=== PATIENT | male | born 1960 | race Caucasian/White ===

== ENCOUNTER 2024-11-30 19:04 | Inpatient (IN) | payer OTHER ==
[~2024-11-30] VITALS: Ht 170.2 cm; Wt 113.4 kg
[2024-11-30] MEDS ORDERED: ONDANSETRON HCL/PF 4 MG/2 ML VIAL ONE (19:22)
[2024-11-30] MEDS ORDERED: FAMOTIDINE/PF INJ 20 MG/2 ML VIAL IV ONE (19:23)
[2024-11-30] MEDS ORDERED: LIDOCAINE VISCOUS 2% UD 15 ML UDC ONE (19:23)
[2024-11-30] MEDS ORDERED: MAG HYDROX/AL HYDROX/SIMETH 30 ML UDC ONE (19:23)
[2024-11-30 19:27] LABS: BASOPHILS # (AUTO) 0.1 K/uL (0.0-0.2); EOSINOPHILS # (AUTO) 0.1 K/uL (0.0-0.7); EOSINOPHILS % (AUTO) 1.2 % (0.0-6.0); HEMATOCRIT 43 % (39-51); HEMOGLOBIN 14.3 g/dL (13.5-17.5); LYMPHOCYTES % (AUTO) 23.6 % (20.0-44.0); MEAN CORPUSCULAR HEMOGLOBIN 29 PG (26.0-33.0); MEAN CORPUSCULAR HGB CONC 34 g/dl (31.0-36.0); MEAN CORPUSCULAR VOLUME 87 fL (80-96); MONOCYTES # (AUTO) 0.8 K/uL (0.1-1.30); MONOCYTES % (AUTO) 9.3 % (2.0-12.0); NEUTROPHILS # (AUTO) 5.6 K/uL (1.8-8.9); NEUTROPHILS % (AUTO) 64.9 % (43.0-81.0); PLATELET COUNT (AUTO) 312 K/uL (150-450); RED CELL DISTRIBUTION WIDTH 13.8 % (11.5-15.0); WHITE BLOOD COUNT (AUTO) 8.7 K/uL (4.3-11.0)
[2024-11-30] MEDS: LIDOCAINE VISCOUS 2% UD 15 ML UDC MM ONE (19:32)
[2024-11-30] MEDS: IV NS 0.9% 1,000 ML BAG IV ONE (19:32)
[2024-11-30] MEDS: FAMOTIDINE/PF INJ 20 MG/2 ML VIAL IV ONE (19:32)
[2024-11-30] MEDS: ONDANSETRON HCL/PF 4 MG/2 ML VIAL IV ONE (19:32)
[2024-11-30] MEDS: MAG HYDROX/AL HYDROX/SIMETH 30 ML UDC PO ONE (19:32)
[2024-11-30 19:36] LABS: CALCIUM, SERUM 9.1 mg/dL (8.5-10.1)
[2024-11-30 19:55] LABS: ALBUMIN 3.7 g/dL (3.4-5.0); BILIRUBIN,DIRECT 0.2 mg/dL (0.0-0.2); TOTAL PROTEIN, SERUM 8.1 g/dL (6.4-8.2)
[2024-11-30] MEDS ORDERED: MORPHINE SULFATE INJ 2 MG/ML DISP.SYRIN IV PRN (22:00)
[2024-11-30] MEDS ORDERED: ONDANSETRON HCL/PF 4 MG/2 ML VIAL IVP PRN (22:00)
[2024-11-30] MEDS ORDERED: IV NS 0.9% 1,000 ML IV PRN (22:00)
[2024-11-30] MEDS ORDERED: MAGNESIUM HYDROXIDE 30 ML UDC PO PRN (22:00)
[2024-11-30] MEDS ORDERED: MAG HYDROX/AL HYDROX/SIMETH 30 ML UDC PO PRN (22:00)
[2024-11-30 22:06] LABS: APPEARANCE,URINE CLEAR (CLEAR); BILIRUBIN,URINE NEGATIVE (NEGATIVE); BLOOD, URINE NEGATIVE Ery/uL (NEGATIVE); COLOR,URINE YELLOW (YELLOW); KETONES,URINE NEGATIVE (NEGATIVE); LEUKOCYTE ESTERASE ,URINE NEGATIVE (NEGATIVE); NITRITE, URINE NEGATIVE (NEGATIVE); PROTEIN,URINE NEGATIVE (NEGATIVE); UGLUCOSE NEGATIVE (NEGATIVE); UROBILINOGEN,URINE 0.2 EU/dL (0.2)
[2024-11-30 22:23] LABS: APPEARANCE,URINE CLEAR (CLEAR); BLOOD, URINE NEGATIVE Ery/uL (NEGATIVE); COLOR,URINE YELLOW (YELLOW); PROTEIN,URINE NEGATIVE (NEGATIVE); UGLUCOSE NEGATIVE (NEGATIVE)
[2024-11-30 22:30] VITALS: BP 124/85; TEMP 99.1; O2SAT 95
[2024-11-30 22:30] LABS: BILIRUBIN,URINE NEGATIVE (NEGATIVE); KETONES,URINE NEGATIVE (NEGATIVE); LEUKOCYTE ESTERASE ,URINE NEGATIVE (NEGATIVE); NITRITE, URINE NEGATIVE (NEGATIVE); UROBILINOGEN,URINE 0.2 EU/dL (0.2)
[2024-11-30] MEDS: TRAZODONE 50 MG TABLET PO PRN (22:44)
[2024-11-30] MEDS: ENOXAPARIN SODIUM 40 MG/0.4 ML DISP.SYRIN SQ SCH (22:45)
[2024-11-30] MEDS: ACETAMINOPHEN 325 MG TABLET PO PRN (22:53)
[2024-12-01 04:00] VITALS: BP 103/72; TEMP 98.2; O2SAT 97
[2024-12-01 06:35] LABS: BASOPHILS # (AUTO) 0.1 K/uL (0.0-0.2); BASOPHILS % (AUTO) 0.9 % (0.0-2.0); EOSINOPHILS # (AUTO) 0.1 K/uL (0.0-0.7); EOSINOPHILS % (AUTO) 2.2 % (0.0-6.0); HEMATOCRIT 42 % (39-51); HEMOGLOBIN 14.1 g/dL (13.5-17.5); LYMPHOCYTES # (AUTO) 2.2 K/uL (0.8-4.8); LYMPHOCYTES % (AUTO) 32.6 % (20.0-44.0); MEAN CORPUSCULAR HEMOGLOBIN 30 PG (26.0-33.0); MEAN CORPUSCULAR HGB CONC 34 g/dl (31.0-36.0); MEAN CORPUSCULAR VOLUME 88 fL (80-96); MONOCYTES # (AUTO) 0.9 K/uL (0.1-1.30); MONOCYTES % (AUTO) 12.8 % (2.0-12.0); NEUTROPHILS # (AUTO) 3.5 K/uL (1.8-8.9); NEUTROPHILS % (AUTO) 51.5 % (43.0-81.0); PLATELET COUNT (AUTO) 260 K/uL (150-450); RED BLOOD CELL COUNT(AUTO) 4.74 MIL/uL (4.5-6.0); RED CELL DISTRIBUTION WIDTH 13.7 % (11.5-15.0); WHITE BLOOD COUNT (AUTO) 6.8 K/uL (4.3-11.0)
[2024-12-01 06:53] LABS: ALBUMIN 3.4 g/dL (3.4-5.0); BILIRUBIN,DIRECT 0.2 mg/dL (0.0-0.2); BILIRUBIN,TOTAL 1.2 mg/dL (0.2-1.0); CREATININE 0.9 mg/dL (0.6-1.3); PHOSPHORUS 4.1 mg/dL (2.5-4.9); TOTAL PROTEIN, SERUM 7.6 g/dL (6.4-8.2)
[2024-12-01 06:59] LABS: CALCIUM, SERUM 8.8 mg/dL (8.5-10.1)
[2024-12-01 08:00] VITALS: BP 111/68; TEMP 98.3; O2SAT 97
[2024-12-01] MEDS ORDERED: ASPI-1169 PO (08:31)
[2024-12-01] MEDS ORDERED: ROSU40TA PO (08:31)
[2024-12-01] MEDS ORDERED: METO25TA4 PO (08:31)
[2024-12-01] MEDS ORDERED: CHOL400T28 PO (08:31)
[2024-12-01] MEDS ORDERED: LISI-768 PO (08:31)
[2024-12-01] MEDS: FAMOTIDINE/PF INJ 20 MG/2 ML VIAL IV SCH (08:41)
[2024-12-01 12:00] VITALS: BP 109/74; TEMP 98; O2SAT 97
[2024-12-01 13:21] LABS: FREE PSA 0.37 ng/mL (0.00-45); PROSTATE SPECIFIC ANTIGEN SCR 1.59 ng/mL (0.00-4.00)
[2024-12-01] MEDS ORDERED: IOHEXOL-350 100 ML VIAL IV ONE (16:28)
[2024-12-01] MEDS ORDERED: IV NS 0.9% 500 ML IV ONE (16:29)
[2024-12-01] MEDS: SUCRALFATE 1 G/10 ML UDC PO SCH (16:59)
[2024-12-01 20:00] VITALS: BP 101/64; TEMP 99.3; O2SAT 95
[2024-12-02 04:00] VITALS: BP 96/67; TEMP 99; O2SAT 98
[2024-12-02 06:22] LABS: BASOPHILS # (AUTO) 0.1 K/uL (0.0-0.2); BASOPHILS % (AUTO) 0.8 % (0.0-2.0); EOSINOPHILS # (AUTO) 0.4 K/uL (0.0-0.7); EOSINOPHILS % (AUTO) 5.1 % (0.0-6.0); HEMATOCRIT 40 % (39-51); HEMOGLOBIN 13.7 g/dL (13.5-17.5); LYMPHOCYTES # (AUTO) 2.1 K/uL (0.8-4.8); LYMPHOCYTES % (AUTO) 30.5 % (20.0-44.0); MEAN CORPUSCULAR HEMOGLOBIN 30 PG (26.0-33.0); MEAN CORPUSCULAR HGB CONC 34 g/dl (31.0-36.0); MEAN CORPUSCULAR VOLUME 87 fL (80-96); MONOCYTES # (AUTO) 0.9 K/uL (0.1-1.30); MONOCYTES % (AUTO) 13.1 % (2.0-12.0); NEUTROPHILS # (AUTO) 3.5 K/uL (1.8-8.9); NEUTROPHILS % (AUTO) 50.5 % (43.0-81.0); PLATELET COUNT (AUTO) 281 K/uL (150-450); RED BLOOD CELL COUNT(AUTO) 4.63 MIL/uL (4.5-6.0); WHITE BLOOD COUNT (AUTO) 6.9 K/uL (4.3-11.0)
[2024-12-02 06:34] LABS: CREATININE 1.1 mg/dL (0.6-1.3); MAGNESIUM 2.3 mg/dL (1.8-2.4); POTASSIUM 3.5 mmol/L (3.5-5.1)
[2024-12-02 08:00] VITALS: BP 102/69; TEMP 97.3; O2SAT 97
[2024-12-02] MEDS: FAMOTIDINE (20 MG) 20 MG TABLET PO SCH (08:14)
[2024-12-02 16:00] VITALS: BP 96/78; TEMP 97.5; O2SAT 97
[2024-12-02 16:39] VITALS: BP 96/78; TEMP 97.5; O2SAT 97
[2024-12-02 20:00] VITALS: BP 106/74; TEMP 97.3; O2SAT 95
[2024-12-03 04:00] VITALS: BP 104/78; TEMP 97.6; O2SAT 96
[2024-12-03 06:45] LABS: INR 1.03 (0.91-1.10); PARTIAL THROMBOPLASTIN TIME 30.4 SEC (24.3-34.3); PROTHROMBIN TIME 10.9 SECS (9.2-11.1)
[2024-12-03 06:47] LABS: BASOPHILS # (AUTO) 0.1 K/uL (0.0-0.2); BASOPHILS % (AUTO) 0.8 % (0.0-2.0); EOSINOPHILS # (AUTO) 0.4 K/uL (0.0-0.7); EOSINOPHILS % (AUTO) 6.7 % (0.0-6.0); HEMATOCRIT 42 % (39-51); HEMOGLOBIN 14.1 g/dL (13.5-17.5); MEAN CORPUSCULAR HEMOGLOBIN 29 PG (26.0-33.0); MEAN CORPUSCULAR HGB CONC 33 g/dl (31.0-36.0); MEAN CORPUSCULAR VOLUME 87 fL (80-96); MONOCYTES # (AUTO) 0.8 K/uL (0.1-1.30); MONOCYTES % (AUTO) 11.9 % (2.0-12.0); NEUTROPHILS # (AUTO) 3.2 K/uL (1.8-8.9); NEUTROPHILS % (AUTO) 49.6 % (43.0-81.0); PLATELET COUNT (AUTO) 274 K/uL (150-450); RED BLOOD CELL COUNT(AUTO) 4.87 MIL/uL (4.5-6.0); RED CELL DISTRIBUTION WIDTH 13.8 % (11.5-15.0); WHITE BLOOD COUNT (AUTO) 6.5 K/uL (4.3-11.0)
[2024-12-03 07:44] LABS: CALCIUM, SERUM 9.6 mg/dL (8.5-10.1); CREATININE 0.9 mg/dL (0.6-1.3); MAGNESIUM 2.3 mg/dL (1.8-2.4); POTASSIUM 4.2 mmol/L (3.5-5.1)
[2024-12-03 08:00] VITALS: BP 102/80; TEMP 97.7; O2SAT 95
[2024-12-03] MEDS ORDERED: BARIUM SULFATE 98% 135 ML SUSP.RECON PO ONE (13:53)
[2024-12-03] MEDS ORDERED: SIMETHICONE/SOD BICARB/CIT AC 1 EACH GRAN.EF.PK PO ONE (14:11)
[2024-12-03 16:00] VITALS: BP 105/73; TEMP 97.7; O2SAT 98
[2024-12-03 20:00] VITALS: BP 106/72; TEMP 97.7; O2SAT 96
[2024-12-04 04:00] VITALS: BP 96/78; TEMP 98.1; O2SAT 97
[2024-12-04 06:47] LABS: BASOPHILS # (AUTO) 0.1 K/uL (0.0-0.2); EOSINOPHILS # (AUTO) 0.4 K/uL (0.0-0.7); EOSINOPHILS % (AUTO) 6.2 % (0.0-6.0); HEMATOCRIT 41 % (39-51); HEMOGLOBIN 13.8 g/dL (13.5-17.5); LYMPHOCYTES # (AUTO) 1.7 K/uL (0.8-4.8); LYMPHOCYTES % (AUTO) 27.6 % (20.0-44.0); MEAN CORPUSCULAR HEMOGLOBIN 29 PG (26.0-33.0); MEAN CORPUSCULAR HGB CONC 34 g/dl (31.0-36.0); MEAN CORPUSCULAR VOLUME 87 fL (80-96); MONOCYTES # (AUTO) 0.6 K/uL (0.1-1.30); MONOCYTES % (AUTO) 9.9 % (2.0-12.0); NEUTROPHILS # (AUTO) 3.5 K/uL (1.8-8.9); NEUTROPHILS % (AUTO) 55.3 % (43.0-81.0); PLATELET COUNT (AUTO) 304 K/uL (150-450); RED BLOOD CELL COUNT(AUTO) 4.74 MIL/uL (4.5-6.0); RED CELL DISTRIBUTION WIDTH 13.6 % (11.5-15.0); WHITE BLOOD COUNT (AUTO) 6.3 K/uL (4.3-11.0)
[2024-12-04 07:52] LABS: CALCIUM, SERUM 8.9 mg/dL (8.5-10.1); CREATININE 0.8 mg/dL (0.6-1.3); MAGNESIUM 2.2 mg/dL (1.8-2.4); POTASSIUM 4.4 mmol/L (3.5-5.1)
[2024-12-04 08:00] VITALS: BP 96/75; TEMP 98; O2SAT 97
[2024-12-04 12:00] VITALS: BP 110/70; TEMP 98; O2SAT 97
[2024-12-04 17:12] VITALS: BP 104/65; TEMP 98; O2SAT 96
[2024-12-04 20:00] VITALS: BP 111/71; TEMP 97.7; O2SAT 96
[2024-12-05 04:00] VITALS: BP 97/75; TEMP 97.7; O2SAT 97
[2024-12-05 06:43] LABS: BASOPHILS # (AUTO) 0.1 K/uL (0.0-0.2); BASOPHILS % (AUTO) 0.9 % (0.0-2.0); EOSINOPHILS # (AUTO) 0.3 K/uL (0.0-0.7); EOSINOPHILS % (AUTO) 5.7 % (0.0-6.0); HEMATOCRIT 41 % (39-51); HEMOGLOBIN 13.7 g/dL (13.5-17.5); LYMPHOCYTES % (AUTO) 32.9 % (20.0-44.0); MEAN CORPUSCULAR HEMOGLOBIN 29 PG (26.0-33.0); MEAN CORPUSCULAR HGB CONC 33 g/dl (31.0-36.0); MEAN CORPUSCULAR VOLUME 87 fL (80-96); MONOCYTES # (AUTO) 0.7 K/uL (0.1-1.30); NEUTROPHILS % (AUTO) 49.5 % (43.0-81.0); PLATELET COUNT (AUTO) 291 K/uL (150-450); RED BLOOD CELL COUNT(AUTO) 4.74 MIL/uL (4.5-6.0); RED CELL DISTRIBUTION WIDTH 13.7 % (11.5-15.0); WHITE BLOOD COUNT (AUTO) 6.1 K/uL (4.3-11.0)
[2024-12-05 06:59] LABS: ALBUMIN 3.4 g/dL (3.4-5.0); BILIRUBIN,TOTAL 0.7 mg/dL (0.2-1.0); CREATININE 0.8 mg/dL (0.6-1.3); MAGNESIUM 2.1 mg/dL (1.8-2.4); POTASSIUM 4.1 mmol/L (3.5-5.1); TOTAL PROTEIN, SERUM 7.6 g/dL (6.4-8.2)
[2024-12-05 08:00] VITALS: BP 107/81; TEMP 98.8; O2SAT 97
[2024-12-05] MEDS ORDERED: DIATR MEGLU/DIATRIZOATE SODIUM 120 ML BOTTLE (GASTROGRAPHIN) ONE (11:23)
[2024-12-05 16:00] VITALS: BP_SYST 107; BP_SYST 119; BP_DIAS 81; TEMP 97; TEMP 98.8; O2SAT 97; O2SAT 98
[2024-12-05 20:00] VITALS: BP 124/74; TEMP 98.1; O2SAT 99
[2024-12-06 04:00] VITALS: BP 110/80; TEMP 97.3; O2SAT 98
[2024-12-06 07:26] LABS: BASOPHILS # (AUTO) 0.1 K/uL (0.0-0.2); BASOPHILS % (AUTO) 1.1 % (0.0-2.0); EOSINOPHILS # (AUTO) 0.4 K/uL (0.0-0.7); EOSINOPHILS % (AUTO) 6.2 % (0.0-6.0); HEMATOCRIT 42 % (39-51); HEMOGLOBIN 14.1 g/dL (13.5-17.5); LYMPHOCYTES # (AUTO) 1.9 K/uL (0.8-4.8); LYMPHOCYTES % (AUTO) 30.5 % (20.0-44.0); MEAN CORPUSCULAR HEMOGLOBIN 29 PG (26.0-33.0); MEAN CORPUSCULAR HGB CONC 34 g/dl (31.0-36.0); MEAN CORPUSCULAR VOLUME 87 fL (80-96); MONOCYTES # (AUTO) 0.6 K/uL (0.1-1.30); MONOCYTES % (AUTO) 10.2 % (2.0-12.0); NEUTROPHILS # (AUTO) 3.2 K/uL (1.8-8.9); PLATELET COUNT (AUTO) 301 K/uL (150-450); RED BLOOD CELL COUNT(AUTO) 4.82 MIL/uL (4.5-6.0); RED CELL DISTRIBUTION WIDTH 13.8 % (11.5-15.0); WHITE BLOOD COUNT (AUTO) 6.2 K/uL (4.3-11.0)
[2024-12-06 08:00] VITALS: BP 114/76; TEMP 97.7; O2SAT 96
[2024-12-06 08:00] LABS: ALBUMIN 3.6 g/dL (3.4-5.0); BILIRUBIN,TOTAL 0.8 mg/dL (0.2-1.0); CREATININE 0.9 mg/dL (0.6-1.3); MAGNESIUM 2.1 mg/dL (1.8-2.4); PHOSPHORUS 4.1 mg/dL (2.5-4.9); TOTAL PROTEIN, SERUM 7.9 g/dL (6.4-8.2)
[2024-12-06 08:52] LABS: CALCIUM, SERUM 9.2 mg/dL (8.5-10.1)
== END 2024-12-06 15:00 | disposition home or self-care (01) | DRG 136 ==
LOC: ER 19:06 → TELE1 22:00 → MEDSG1 22:30
PROVIDERS: ADMIT Nurse Practitioner Family; ATTEND Nurse Practitioner Family
PROC: 0WB83ZX Excision of Chest Wall, Percutaneous Approach, Diagnostic (ICD-10-PCS; principal; 2024-12-03)
PROC: 0WBC3ZX Excision of Mediastinum, Percutaneous Approach, Diagnostic (ICD-10-PCS; 2024-12-03)
DX: C78.1 Secondary malignant neoplasm of mediastinum (principal); C78.02 Secondary malignant neoplasm of left lung; C80.1 Malignant (primary) neoplasm, unspecified; E78.5 Hyperlipidemia, unspecified; I71.43 Infrarenal abdominal aortic aneurysm, without rupture; F17.210 Nicotine dependence, cigarettes, uncomplicated; I25.10 Atherosclerotic heart disease of native coronary artery without angina pectoris; E66.9 Obesity, unspecified; Z68.39 Body mass index [BMI] 39.0-39.9, adult; K57.30 Diverticulosis of large intestine without perforation or abscess without bleeding; E87.1 Hypo-osmolality and hyponatremia; I10 Essential (primary) hypertension; I70.0 Atherosclerosis of aorta; N28.9 Disorder of kidney and ureter, unspecified; Z95.1 Presence of aortocoronary bypass graft; Z79.82 Long term (current) use of aspirin; Z79.899 Other long term (current) drug therapy
CPT/HCPCS: 36415; 71045-TC; 71250-TC; 74230-TC; 77012-TC; 80048-TC; 80053-TC; 80076-TC; 82378; 83615-TC; 83690-TC; 83735-TC; 84100-TC; 84153-TC; 84154-TC; 84484-TC; 85025-TC; 85610-TC; 85730-TC; 88305-TC; 88333-TC; 88334-TC; 88341; 88342; 88360; 92526; 92611-TC; G0378; J1308; J1650; J2405; J7040; Q9963; Q9967